=== PATIENT | male | born 1965 | race Caucasian/White ===

== ENCOUNTER 2016-09-28 11:37 | Emergency (ER) | payer BC ==
--- NOTE | ~2016-09-28 | ER ---
PATIENT'S NAME: ASHOK QUARLES [facility] AGE: 51 Y [address] ROOM: [place] [id number] LOCATION: [facility] ADMIT DATE: 09/28/2016 ER/Outpatient Report DISCHARGE DATE: 09/28/2016 FAMILY PHYSICIAN: PHYSICIAN, NO ATTENDING PHYSICIAN: Malik Meza Time of Arrival: 1137 hours. Time of Evaluation: 1140 hours. CHIEF COMPLAINT: Rash, elevated blood pressure. HISTORY OF PRESENT ILLNESS: The patient is a 51-year-old male who presents to the emergency department today with chief complaint of rash and elevated blood pressure. The patient reports he was seen at [facility] just prior to arrival for a spider bite on his left inner thigh. They checked his blood pressure and told him that he needed to come over to the emergency department. He denies any fevers or chills. No nausea or vomiting. No diarrhea or constipation. He does report that he noticed this spider bite on the left side of his inner thigh 2 days prior and he reports it got more red today. Pain is currently 2/10 in severity, sharp, worse with touch, worse with movement. He reports he did have some chest pain occasionally about 2 weeks ago, does not have any now, has not had any for quite some time. PAST MEDICAL HISTORY: None. PAST SURGICAL HISTORY: Arm. SOCIAL HISTORY: The patient smokes 2 packs per day for 10 years. Drinks alcohol daily, 8-10 drinks. Denies any illicit drug use. ALLERGIES: NO KNOWN DRUG ALLERGIES. MEDICATIONS: None. PRIMARY CARE DOCTOR: None. REVIEW OF SYSTEMS: PATIENT'S NAME: ASHOK QUARLES [facility] AGE: 51 Y [address] ROOM: [place] [id number] LOCATION: [facility] ADMIT DATE: 09/28/2016 ER/Outpatient Report DISCHARGE DATE: 09/28/2016 FAMILY PHYSICIAN: PHYSICIAN, NO ATTENDING PHYSICIAN: Malik Meza All systems are reviewed by myself and are negative with the exception of those discussed in HPI and past medical history. PHYSICAL EXAMINATION: VITAL SIGNS: Weight 83.7 kg. Blood pressure 227/120, pulse 118, respiratory rate 20, temperature 99, and oxygen saturation 96% on room air. GENERAL: The patient is a 51-year-old male, appears stated age, in no acute distress at this time. HEENT: Normocephalic, atraumatic. Pupils are equal, round, and reactive to light. NECK: Supple. There is no JVD. No nuchal rigidity. CARDIOVASCULAR: Tachycardic. No murmurs, rubs, or gallops. LUNGS: Clear to auscultation bilaterally. No wheezes, rales, or rhonchi. ABDOMEN: Soft, nontender, and nondistended. No rebound, rigidity, or guarding. MUSCULOSKELETAL: The patient moves all 4 extremities. SKIN: The patient does have erythematous rash on the left inner thigh. There is an area of dark red at the center. It is blanching. There is no petechiae or purpura. LABORATORY DATA AND X-RAYS: Labs and x-rays are obtained. Lactate is normal. CBC is normal. Procalcitonin less than 0.05. CMP is normal. LFTs are normal. CK, CK-MB, and troponin are all normal. ProBNP is 193. Procalcitonin is less than 0.05. EKG is obtained and interpreted by myself at 1300 hours shows sinus rhythm with a rate of 97, normal axis, normal interval. No ST elevation, ST depression, or T-wave inversions. Chest x-ray shows no cardiomegaly, no other acute cardiopulmonary processes noted. IMPRESSION: 1. Acute left thigh cellulitis. 2. Elevated blood pressure. 3. Initial visit. EMERGENCY DEPARTMENT COURSE: The patient was brought back to the examination room. Seen and evaluated by myself. IV is established. Laboratory analysis and imaging are obtained as described above. The patient is given 1 L of normal saline. He is given 1 g of Tylenol. The patient is given 2 g of Rocephin IV. I have discussed the results with the patient. The patient's blood pressure is elevated, he is currently asymptomatic. I have discussed that I will start him on hydrochlorothiazide. I have also written a prescription for Keflex for home. I have discussed return to care instructions including worsening symptoms or any other concerns to return to the emergency department as soon as possible. I have discussed following up with the primary care doctor. We have discussed PATIENT'S NAME: ASHOK QUARLES [facility] AGE: 51 Y [address] ROOM: [place] [id number] LOCATION: [facility] ADMIT DATE: 09/28/2016 ER/Outpatient Report DISCHARGE DATE: 09/28/2016 FAMILY PHYSICIAN: , LANE ATTENDING PHYSICIAN: Malik Meza the different options in town. He does report that he will call and make an appointment. DISPOSITION: The patient is discharged home in good condition. DO CHANTEL RODRIGES/nemo /[id number] d: 09/28/161941 t: 09/29/16 0855, OUTPATIENT REPORT
[2016-09-28 12:13] LABS: BASOPHIL % 0.5 %; EOSINOPHIL # 0.2 K/uL (0.0-0.5); EOSINOPHIL % 2.3 %; HEMOGLOBIN 15.8 g/dL (12.0-17.0); IMMATURE GRANULOCYTE % 0.4 %; LYMPHOCYTE # 1.8 K/uL (0.8-4.0); MCHC 34.3 gm/dL (32.0-36.5); MONOCYTE # 0.5 K/uL (0.0-1.0); MONOCYTE % 6.4 %; MPV 9.1 fl (9.4-12.4); NEUTROPHIL % 66.4 %; NRBC % 0 /100WBC (0-0.00); PLATELET COUNT 182 K/uL (150-450); RBC 4.51 M/uL (4.00-6.00); RDW-CV 13.2 % (11.9-14.6); WBC 7.5 K/uL (4.0-11.0)
[2016-09-28 12:32] LABS: ALK PHOS 50 IU/L (33-138); ALT 23 IU/L (12-78); AST 21 IU/L (10-40); BLOOD UREA NITROGEN 11 mg/dL (6-24); CALCIUM 8.7 mg/dL (8.5-10.5); CHLORIDE 104 mMol/L (96-110); CO2 23 mMol/L (22-32); CPK 101 IU/L (35-332); CREATININE 0.9 mg/dL (0.6-1.3); ESTIMATED GFR (MDRD EQUATION) > 60; SODIUM 137 mMol/L (135-145); TOTAL BILIRUBIN 0.5 mg/dL (0.0-1.5); TOTAL PROTEIN 7.3 g/dL (6.0-8.4)
== END 2016-09-28 13:52 | disposition disaster alternative care site (69) ==
LOC: GMED 11:37
PROVIDERS: Emergency Medicine
DX: L03.116 Cellulitis of left lower limb (principal); R03.0 Elevated blood-pressure reading, without diagnosis of hypertension; F17.210 Nicotine dependence, cigarettes, uncomplicated; Z98.890 Other specified postprocedural states
CPT/HCPCS: J0696